=== PATIENT | male | born 2005 | race Caucasian/White ===

== ENCOUNTER 2024-02-27 15:21 | Emergency (ER) | payer BC ==
[2024-02-27 15:26] VITALS: RESP 18; BMI 19.9
[2024-02-27] MEDS ORDERED: ACETAMINOPHEN 325 MG TABLET (FP) ONE (16:32)
[2024-02-27] MEDS ORDERED: IBUPROFEN 400 MG TABLET (FP) PO ONE (16:33)
[2024-02-27] MEDS: IBUPROFEN 400 MG TABLET (FP) PO ONE (16:34)
[2024-02-27] MEDS: ACETAMINOPHEN 325 MG TABLET (FP) PO ONE (16:34)
[2024-02-27 17:22] VITALS: TEMP 97.9
[2024-02-27 17:50] LABS: EPI CELLS 3 /uL (0-25.1); HYALINE CASTS 1 /uL (0-3.1); PH,URINE 5.5 (5.0-8.0); URINE APPEARANCE CLEAR; URINE BACTERIA 3 /uL (0-1359); URINE BILIRUBIN NEGATIVE (NEGATIVE); URINE COLOR YELLOW; URINE GLUCOSE (UA) NEGATIVE (NEGATIVE); URINE KETONE 3+ (NEGATIVE); URINE LEUK ESTERASE NEGATIVE (NEGATIVE); URINE NITRITE NEGATIVE (NEGATIVE); URINE PROTEIN 1+ (NEGATIVE); URINE RBC 7 /uL (0-23.9); URINE WBC 13 /uL (0-25.8)
[2024-02-27] MEDS ORDERED: ONDANSETRON *ODT* 4 MG TABLET ONE (17:56)
[2024-02-27] MEDS: ONDANSETRON *ODT* 4 MG TABLET SL ONE (17:58)
[2024-02-27 18:19] VITALS: BP 110/66; PULSE 94
== END 2024-02-27 18:34 | disposition home or self-care (01) ==
LOC: JERFT 15:21
DX: R50.9 Fever, unspecified (principal); R51.9 Headache, unspecified; R05.9 Cough, unspecified; R11.0 Nausea; B34.9 Viral infection, unspecified; R09.81 Nasal congestion; Z20.822 Contact with and (suspected) exposure to COVID-19
CPT/HCPCS: 0241U-QW; 81003; 87086; 99283-25; Q0162

== ENCOUNTER 2024-02-28 16:01 | Emergency (ER) | payer BC ==
[2024-02-28 16:44] VITALS: BP 112/70; PULSE 66; RESP 20; TEMP 98.2; BMI 24.1
[2024-02-28] MEDS: ACETAMINOPHEN 1000 MG/100 ML BAG IVPB ONE (18:10)
[2024-02-28] MEDS: SODIUM CHLORIDE 1,000 ML IV STA (18:10)
[2024-02-28] MEDS ORDERED: ACETAMINOPHEN INJECTION 100 ML IVPB ONE (18:11)
[2024-02-28] MEDS: METOCLOPRAMIDE HCL INJECTION 10 MG/2 ML VIAL IVPB ONE (18:11)
[2024-02-28 18:21] LABS: HEMATOCRIT 43.9 % (35.4-49); HEMOGLOBIN 14.9 G/dL (11.7-16.9); MCH 31.3 pg (25.7-33.7); MCHC 33.9 g/dl (32.0-35.9); MEAN CELL VOLUME 92.3 fl (80-96); MEAN PLT VOLUME 8.1 fl (7.5-11.1); PLATELET COUNT 230.3 10^3/uL (134-434); RBC 4.76 10^6/uL (4.00-5.60); RDW 12.9 % (11.9-15.9); WHITE BLOOD COUNT 3.6 10^3/uL (4.0-10.8)
[2024-02-28] MEDS ORDERED: METOCLOPRAMIDE HCL INJECTION 10 MG/2 ML VIAL ONE (18:26)
[2024-02-28 18:37] LABS: ALBUMIN 4.3 g/dl (3.4-5.0); BILIRUBIN,TOTAL 0.7 mg/dl (0.2-1); CALCIUM 9.1 mg/dl (8.5-10.1); CREATININE 0.8 mg/dl (0.6-1.3); POTASSIUM 4.3 mmol/L (3.5-5.1); TOT PROT 6.3 g/dl (6.4-8.2)
[2024-02-28 20:15] LABS: PLATELET ESTIMATE ADEQUATE
[2024-03-02 14:10] LABS: E.chaff HME IgG Negative (Neg:<1:64)
== END 2024-02-28 19:54 | disposition home or self-care (01) ==
LOC: FER 16:01
PROC: 3E033GC Introduction of Other Therapeutic Substance into Peripheral Vein, Percutaneous Approach (ICD-10-PCS; principal; 2024-02-28)
PROC: 3E033NZ Introduction of Analgesics, Hypnotics, Sedatives into Peripheral Vein, Percutaneous Approach (ICD-10-PCS; 2024-02-28)
PROC: 3E0337Z Introduction of Electrolytic and Water Balance Substance into Peripheral Vein, Percutaneous Approach (ICD-10-PCS; 2024-02-28)
DX: R11.0 Nausea (principal); B34.9 Viral infection, unspecified; R50.9 Fever, unspecified; R61 Generalized hyperhidrosis; R53.83 Other fatigue; R51.9 Headache, unspecified; R20.2 Paresthesia of skin
CPT/HCPCS: 36415; 80053; 82930; 85027; 86618; 86666; 87798; 99284-25; J0131